=== PATIENT | female | born 1950 | race Caucasian/White ===

== ENCOUNTER → 2018-02-28 01:27 | Outpatient (CLI) | payer MEDICARE, SELFPAY ==
--- NOTE | 2018-02-28 09:15 | DI.REPORT_ITS ---
SYMPTOM/DIAGNOSIS: SCREENING Z12.31 MAMMOGRAM: 02/28 Mammograms were interpreted according to the usual protocol including computer analysis with CAD system, tomosynthesis and C view imaging. The breasts are of moderate density with fairly symmetrical distribution of fibroglandular tissue. No dominant mass or clumped microcalcification is identified in either breast. The current examination is compared with previous examinations including February 2017 and there has been no gross interval change in appearance in comparison with the previous studies. CONCLUSION: No specific evidence of malignancy at this time. Routine screening examinations are suggested at yearly intervals due to the family history of breast carcinoma. Category 1, breast density category B. MQSA ASSESSMENT OF FINDINGS: Negative. Category 1. Patient will receive a letter notifying them of these results. BI-RADS category B. There are scattered areas of fibroglandular density.
== END ==
PROVIDERS: PCP Nurse Practitioner; Visit Provider Nurse Practitioner
DX: Z12.31 Encounter for screening mammogram for malignant neoplasm of breast (principal); Z80.3 Family history of malignant neoplasm of breast
CPT/HCPCS: 77063; 77067

== ENCOUNTER 2018-08-25 15:27 | Outpatient (CLI) | payer MEDICARE, OTHER, SELFPAY ==
--- NOTE | 2018-08-25 15:55 | DI.RAD_ITS ---
SYMPTOM/DIAGNOSIS: SOB, WT GAIN, R06.02 PA AND LATERAL CHEST: Comparison is made with 12/19/16. Heart size is stable and within normal limits. There is tortuosity of the thoracic aorta. Pulmonary vasculature is otherwise unremarkable. There is unchanged elevation of the right hemidiaphragm. The lungs are free of infiltrates, effusions or pneumothoraces. There is again seen exaggeration of the kyphosis centered at T 12. This is unchanged. Degenerative changes are seen in the spine. IMPRESSION: No acute pulmonary process.
[2018-08-25 16:30] LABS: HCT 50.1 % (36.0-46.0); HGB 15.5 g/dL (12.0-15.5); Mean Corp. HGB Concentration 30.9 g/dL (32.0-36.0); Mean Corpuscular Hemoglobin 32.5 pg (27.0-33.0); Mean Platelet Volume 10.2 fL (8.0-11.0); Platelet Count 132 x1000/uL (130-400); RBC 4.77 m/cumm (4.00-5.20); RBC Distribution Width 13.8 % (11.7-14.6); White Blood Cell Count 5.52 k/cumm (4.4-10.8)
[2018-08-25 17:17] LABS: ALT 33 U/L (12-78); AST 22 U/L (15-37); Alkaline Phosphatase 62 U/L (46-116); Anion Gap 2.6 mmol/L (3-11); BUN 19 mg/dL (7-18); Bilirubin, Total 0.4 mg/dL (0.2-1.0); CO2 39.4 mmol/L (21.0-32.0); CREATININE 0.82 mg/dL (0.55-1.02); Calcium 8.3 mg/dL (8.5-10.1); Chloride 103 mmol/L (98-107); Glucose 76 mg/dL (70-100); Potassium 4.3 mmol/L (3.5-5.1); Sodium 145 mmol/L (136-145); TSH (W/Ref FT4) 2.07 uIU/mL (0.358-3.74); Total Protein 6.3 g/dL (6.4-8.2)
== END 2018-08-25 15:47 ==
PROVIDERS: PCP Nurse Practitioner; Visit Provider Nurse Practitioner
DX: R06.02 Shortness of breath (principal); R63.5 Abnormal weight gain; R60.0 Localized edema; I10 Essential (primary) hypertension; E03.9 Hypothyroidism, unspecified
CPT/HCPCS: 36415; 80053; 85027; 71046; 84443

== ENCOUNTER 2018-09-01 13:30 | Outpatient (CLI) | payer MEDICARE, OTHER, SELFPAY ==
--- NOTE | 2018-09-01 13:41 | DI.CT_ITS ---
SYMPTOM/DIAGNOSIS: SOB, DYSPNEA ON EXERTION, LOWER EXTREMITY EDEMA, LOW 02 SAT, R06.09,R06.00, R60.0, R79.[address]: CT angiography was performed with multi slice acquisition and multi planar and 3D reconstruction. Comparison is made chest xray dated 08/25/[address] dated 12/16/15. The pulmonary arteries and aorta are well opacified with IV contrast. No pulmonary artery filling defects or aortic dissection is seen. There are no pleural or pericardial effusions. The right diaphragm is again noted to be elevated and there is mild right basilar atelectasis. There are mild atherosclerotic changes of the thoracic aorta. There is a small hiatal hernia. The lungs are suboptimally evaluated due to respiratory motion. There is underlying emphysema. No infiltrates are seen. Again noted is a small, smoothly marginated area in the anterior mediastinum. Scoliosis and degenerative changes are again noted in the spine. IMPRESSION: No evidence of pulmonary emboli or other acute abnormality. There is mild underlying centrilobular emphysema.
--- NOTE | 2018-09-01 14:08 | DI.US_ITS ---
SYMPTOM/DIAGNOSIS: RT CALF PAIN, BILAT LOWER EXT EDEMA, R60.0, M79.661, LT CALF PAIN BILATERAL LOWER EXTREMITY ULTRASOUND: There is edema noted in the subcutaneous tissues of the calves bilaterally. No Celestin's cysts or localized fluid collection is seen. The deep venous system is freely compressible. No thrombus is visible. The doppler venous wave form augments normally. No superficial thrombophlebitis is seen. IMPRESSION: Calf edema. No evidence of deep or superficial venous thrombosis.
[2018-09-01 14:27] LABS: Anion Gap 4.7 mmol/L (3-11); BUN 20 mg/dL (7-18); CO2 39.3 mmol/L (21.0-32.0); CREATININE 0.93 mg/dL (0.55-1.02); Calcium 8.7 mg/dL (8.5-10.1); Chloride 100 mmol/L (98-107); Glucose 103 mg/dL (70-100); Potassium 3.7 mmol/L (3.5-5.1); Sodium 144 mmol/L (136-145)
[2018-09-01] MEDS: Omnipaque 350 MG/ML 100 ML BTL IJ (15:52)
== END 2018-09-01 13:50 ==
PROVIDERS: PCP Nurse Practitioner; Visit Provider Nurse Practitioner
DX: R06.09 Other forms of dyspnea (principal); R60.0 Localized edema; R79.81 Abnormal blood-gas level; R06.02 Shortness of breath; J43.9 Emphysema, unspecified; I49.3 Ventricular premature depolarization
CPT/HCPCS: 0296T; 36415; 71275; 80048; 93225; 93970; J3490

== ENCOUNTER 2018-09-22 16:03 | Outpatient (CLI) | payer MEDICARE, OTHER, SELFPAY | END 2018-09-22 16:23 | PROVIDERS: PCP Nurse Practitioner; Referring Provider Nurse Practitioner; Visit Provider Student in an Organized Health Care Education/Training Program | DX: R06.02 Shortness of breath (principal); I49.3 Ventricular premature depolarization | CPT/HCPCS: 0298T ==

== ENCOUNTER 2018-12-09 01:42 | Outpatient (CLI) | payer MEDICARE, OTHER, SELFPAY ==
--- NOTE | 2018-12-09 08:51 | DI.RAD_ITS ---
SYMPTOM/DIAGNOSIS: ELEVATED HEMIDIAPHRAGM, DISORDER OF DIAPHRAGM, J98.6 CHEST FLUOROSCOPY AND PA AND LATERAL CHEST:: Preliminary PA and lateral views of the chest show borderline cardiomegaly and elevation of the diaphragm on the right. Visualized lungs are clear and no pleural effusion is seen. Fluoroscopy Time: 44 seconds Fluoroscopy was utilized to evaluate elevated diaphragm on the right. Left hemidiaphragm moves normally with inspiration and expiration and on sniff test. Right hemidiaphragm shows minimal paradoxical movement on inspiration and expiration and sniff test. 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
== END 2018-12-09 02:02 ==
PROVIDERS: PCP Nurse Practitioner; Visit Provider Nurse Practitioner
DX: J98.6 Disorders of diaphragm (principal); I51.7 Cardiomegaly
CPT/HCPCS: 76000

== ENCOUNTER 2018-12-16 08:01 | Outpatient (RCR) | payer MEDICARE, OTHER, SELFPAY | END 2019-01-04 23:59 | disposition home or self-care (01) | LOC: PRC 08:01 | PROVIDERS: PCP Nurse Practitioner; Visit Provider Family Medicine | DX: Z51.89 Encounter for other specified aftercare (principal) ==

== ENCOUNTER 2019-02-05 08:52 | Outpatient (RCR) | payer MEDICARE, OTHER, SELFPAY | END 2019-03-07 23:59 | disposition home or self-care (01) | LOC: PRC 08:52 | PROVIDERS: PCP Nurse Practitioner; Visit Provider Family Medicine | DX: Z51.89 Encounter for other specified aftercare (principal); J44.9 Chronic obstructive pulmonary disease, unspecified | CPT/HCPCS: G0424 ==

== ENCOUNTER 2019-03-05 00:41 | Outpatient (CLI) | payer MEDICARE, OTHER, SELFPAY ==
--- NOTE | 2019-03-05 12:28 | DI.MAMMO_ITS ---
SYMPTOM/DIAGNOSIS: SCREENING, Z12.31 MAMMOGRAMS: Mammograms were interpreted according to the usual protocol including computer analysis with CAD system, tomosynthesis and C view imaging. Comparison is made with prior examinations. Breast density, Category B. Fibronodular densities are scattered throughout the breasts. No suspicious masses or microcalcifications are seen. There has been no significant change compared to the prior examinations. IMPRESSION: No evidence for malignancy. Yearly mammography is recommended. Category 2. MQSA ASSESSMENT OF FINDINGS: Negative with benign findings. Category 2. Patient will receive a letter notifying them of these results. BI-RADS category B. There are scattered areas of fibroglandular density.
== END 2019-03-05 01:01 ==
PROVIDERS: PCP Nurse Practitioner; Visit Provider Nurse Practitioner
DX: Z12.31 Encounter for screening mammogram for malignant neoplasm of breast (principal)
CPT/HCPCS: 77063; 77067

== ENCOUNTER 2019-04-03 14:00 | Outpatient (RCR) | payer MEDICARE, OTHER, SELFPAY | END 2019-04-06 23:59 | disposition home or self-care (01) | LOC: PRC 14:00 | PROVIDERS: PCP Nurse Practitioner; Visit Provider Family Medicine | DX: Z51.89 Encounter for other specified aftercare (principal); J44.9 Chronic obstructive pulmonary disease, unspecified | CPT/HCPCS: G0424 ==

== ENCOUNTER 2019-05-06 14:00 | Outpatient (RCR) | payer MEDICARE, OTHER, SELFPAY | END 2019-05-07 23:59 | disposition home or self-care (01) | LOC: PRC 14:00 | PROVIDERS: PCP Nurse Practitioner; Visit Provider Family Medicine | DX: J44.9 Chronic obstructive pulmonary disease, unspecified (principal); Z51.89 Encounter for other specified aftercare | CPT/HCPCS: G0424 ==

== ENCOUNTER 2019-05-25 14:00 | Outpatient (RCR) | payer MEDICARE, OTHER, SELFPAY | END 2019-06-06 23:59 | disposition home or self-care (01) | LOC: PRC 14:00 | PROVIDERS: PCP Nurse Practitioner; Visit Provider Family Medicine | DX: J44.9 Chronic obstructive pulmonary disease, unspecified (principal); Z51.89 Encounter for other specified aftercare | CPT/HCPCS: G0424 ==

== ENCOUNTER 2019-07-18 16:42 | Emergency (ER) | payer MEDICARE, OTHER, SELFPAY ==
[2019-07-18] VITALS (24 sets, daily range): BP systolic 112–162; BP diastolic 48–85; PULSE 69–84; RESP 13–27; TEMP 36.9–37.1; O2SAT 86–94
--- NOTE | 2019-07-18 17:05 | W.ED.GENAD ---
Discharge Plan Disposition Patient Disposition: HOME Condition: Stable Discharge Details Chief Complaint: Chest Pain Clinical Impression: Arm pain, Atypical chest pain Primary Care Provider: Barbi Hinton ED Provider: Eliel Han Home Meds and New Rx's Prescriptions: Continued ibuprofen 200 mg capsule 200 mg PO TID-QID PRNRF: 0 furosemide 40 mg tablet 40 mg PO DAILY RF: 0 levothyroxine 125 mcg tablet 125 mcg PO DAILY Qty: 90 RF: 3 Combivent Respimat 20-100 mcg/actuation mist 1 puff IH Q6H RF: 0 (DME) Oxygen Tank See Dose Instructions .ROUTE .MEDSUPPLY Qty: 1 RF: 0 potassium chloride 10 mEq capsule, extended release 10 meq PO DAILY Qty: 90 RF: 3 Anoro Ellipta 62.5-25 mcg/actuation blister with device 1 inh IH DAILY RF: 0 omeprazole 20 mg capsule,delayed release(DR/EC) 20 mg PO DAILY RF: 0 fluticasone propionate 50 mcg/actuation spray,suspension 1 spray PERLA DAILY RF: 0 tiotropium-olodaterol 2.5-2.5 mcg/actuation mist 2 puff IH DAILY RF: 0 ergocalciferol (vitamin D2) 400 unit tablet 400 unit PO DAILY RF: 0 bupropion HCl [Wellbutrin SR] 150 mg tablet sustained-release 12 hr 150 mg PO DAILY RF: 0 Discharge Instructions Instructions: Chest Pain (ED), Arm Pain (ED) Additional Instructions: Alternate tylenol and motrin as needed and directed for pain. Follow-up with your primary care doctor in 1 week. Return to the emergency department with any worsening or new concerning symptoms. Discharge Data Discharge Date/Time-TO BE ENTERED AT DEPARTURE: 07/18/19 20:50 Discharge Physician: Rima Carvalho Medical Decision Making <Rima Carvalho DO - Last Filed: 07/19/19 08:18> 1700 -- 68-year-old female with history of COPD, sleep apnea, former smoker presents with bilateral arm pain, worse on right side and with movement x3 hours and also burning substernal chest pain x1 hour. States the pain is improved now, but still present with 8/10 in the right arm, and 5/10 in the chest. Denies any numbness or weakness in extremities. She admits to shortness of breath earlier but states this is now resolved. She states she was mopping around the house yesterday and carrying heavy box at home but was unsure of there was any injury. EKG on arrival notes a rate of 80, sinus with no acute ST ischemic changes. Patient has pain in arms with range of motion, worse on right side along with tenderness to palpation. She has minimal tenderness to substernal chest. Lungs clear. She states her O2 sat is 88% at baseline due to her COPD. She has oxygen at home as needed. Differential diagnosis includes musculoskeletal chest and arm pain, COPD, ACS, PE. Suspect most likely musculoskeletal. Will check screening labs, chest x-ray and give Toradol and Lidoderm patch. 1914 -- Labs and imaging reviewed. Normal white blood cell count. Normal electrolytes. Troponin negative. Chest x-ray noted a chronically elevated right hemidiaphragm, but an atypical appearance on lateral view compared to previous. Recommended CT chest for further evaluation. Patient had complete relief of symptoms with Lidoderm and Toradol. She is agreeable to stay for repeat troponin and EKG. 1999 --Case endorsed to Dr. Han to follow-up on repeat troponin and EKG and CT results. If follow-up labs and imaging negative, and patient still asymptomatic, okay w/ plan to discharge home with follow-up with PCP. Medical Records Medical records reviewed: Yes I reviewed the patient's medical records. Imaging Data Radiologic Study: Radiologist's impression: XR Chest, 2 Views Exam date and time: 07/18/2019 6:14 PM Age: 68 years old Clinical indication: Other: Chest pain, R/O acute disease TECHNIQUE: Imaging protocol: XR of the chest Views: 2 views. COMPARISON: CR RF chest fluoroscopy cxr 2v 12/09/2018 8:51 AM FINDINGS: Lungs: No focal consolidation. Pleural space: Unremarkable. No pleural effusion. No pneumothorax. Heart/Mediastinum: Unremarkable. No cardiomegaly. Diaphragm: Unchanged elevation of the right hemidiaphragm though the appearance somewhat atypical on lateral view. Bones/joints: Unremarkable. IMPRESSION: Similar appearing asymmetric elevation of the right hemidiaphragm. The appearance is somewhat atypical on lateral view which suggests possible superimposed loculated effusion or right middle lobe consolidation. Consider further evaluation with CT. Lab Data Lab results reviewed: Yes I reviewed the patient's lab results. ECG Data Attestation: I personally reviewed and interpreted this ECG (s) as follows: Interpretation: Rate of 80, sinus, no acute ST elevation or depression. T wave inversion in V2 and lead III which is unchanged from previous. PA 142. QTc 457. QRS 102. <Eliel Han MD - Last Filed: 07/18/19 20:43> pt's ct and troponin/ecg negative. remains pain free and comfortable with d/c. Will d/c home and advdised f/u with pcp, return precautions given ECG Data Attestation: I personally reviewed and interpreted this ECG (s) as follows: Prior ECG tracings: available for review Interpretation: sinus rhythm, rate of 69, pr 186, no acute st t wave ischemic findings HPI <Rima Carvalho DO - Last Filed: 07/19/19 08:18> General Date/Time Provider Initiated Documentation: 07/18/19 16:56. Limitations to Documentation: no limitations. Information obtained by: patient. History of Present Illness 68 year old F presents to the emergency department with the chief complaint of Chest and arm pain, Quality is described as burning (in chest) and aching (in arms), Patient reports no radiation. Patient started experiencing this hour(s) (6) and it has been constant. No relieving factors improve symptom(s), Movement worsens symptoms . Patient notes chest pain and shortness of breath; denies confusion, cough, diaphoresis, fever/chills, headaches, loss of appetite, malaise, nausea/vomiting, rash, seizure, syncope and weakness. Patient did receive the following treatments prior to arrival, none Related Data Home Medications Medication Instructions Recorded Confirmed ibuprofen 200 mg capsule 200 mg PO TID-QID PRN 08/25/18 07/18/19 furosemide 40 mg tablet 40 mg PO DAILY 09/19/18 07/18/19 levothyroxine 125 mcg tablet 125 mcg PO DAILY #90 tab-cap 09/29/18 07/18/19 Oxygen #1 each 11/05/18 12/04/18 ipratropium 20 mcg-albuterol 100 1 puff IH Q6H 11/05/18 07/18/19 mcg/actuation mist for inhalation potassium chloride 10 mEq 10 meq PO DAILY #90 cap 12/18/18 07/18/19 capsule,extended release fluticasone propionate 50 1 spray PERLA DAILY 03/05/19 07/18/19 mcg/actuation nasal spray,suspension omeprazole 20 mg capsule,delayed 20 mg PO DAILY 03/05/19 07/18/19 release umeclidinium 62.5 mcg-vilanterol 1 inh IH DAILY 03/05/19 07/18/19 25 mcg/actuation powdr for inhalation tiotropium 2.5 mcg-olodaterol 2.5 2 puff IH DAILY 04/06/19 07/18/19 mcg/actuation mist for inhalation ergocalciferol (vitamin D2) 400 400 unit PO DAILY 06/15/19 07/18/19 unit tablet bupropion HCl [Wellbutrin SR] 150 mg PO DAILY 07/18/19 07/18/19 Previous Rx's Medication Instructions Recorded levothyroxine 125 mcg tablet 125 mcg PO DAILY #90 tab-cap 09/29/18 potassium chloride 10 mEq 10 meq PO DAILY #90 cap 12/18/18 capsule,extended release Allergies Allergy/AdvReac Type Severity Reaction Status Date / Time No Known Drug Allergies Allergy Verified 07/18/19 16:52 General Stated Complaint: Chest Pain LAINE: 2 Review of Systems <Rima Carvalho DO - Last Filed: 07/19/19 08:18> All systems reviewed & are unremarkable except as noted in HPI and below Constitutional Constitutional: Reports as per HPI, Denies chills and Denies fever(s) Eyes Eyes: Denies blurry vision ENT Ears, Nose, Mouth, and Throat: Denies dizziness, Denies sore throat and Denies throat swelling Cardiovascular Cardiovascular: Reports chest pain and Denies dyspnea Respiratory Respiratory: Denies cough and Denies dyspnea Gastrointestinal Gastrointestinal: Denies abdominal pain, Denies diarrhea and Denies vomiting Genitourinary Genitourinary: Denies hematuria and Denies dysuria Musculoskeletal Musculoskeletal: Denies back pain, Denies numbness and Reports other (Bilateral arm pain) Integumentary/Breasts Skin/Breast: Denies lesions and Denies rash Neurologic Neurologic: Denies dizziness, Denies focal weakness and Denies numbness Allergic/Immunologic Allergic/Immunologic: Denies throat swelling PFSH <DO Francoise Ly Last Filed: 07/19/19 08:18> Medical History COPD, severe (Inactive) [facility] [place] pulmonology progress note 11/04/18. Leticia Silvestre MD Obstructive sleep apnea syndrome (Inactive) very severe [facility] pulmonary 01/09/19.cpap with supplimental O2 Pulmonary hypertension (Inactive) Right Heart Catheterization performed 10/03/18 @ [facility] consistent with moderate pulmonary HTN, Likely precapillary from COPD. 03/31/19 [facility] Cardiology Surgical History Mediastinal nodule biopsy (12/29/15) 2.2 cm nodule anterior mediastinum bx Interventional Radiology [facility] Family History Mother Neoplasm breast CA Father No problems noted. Sister Neoplasm breast CA early 50's, currently doing well 12/12/16 RH Brother No problems noted. Brother No problems noted. Son No problems noted. Social History Smoking/Tobacco Use Status: Former Tobacco Use Alcohol Intake: current Alcohol Intake frequency: 0-2 drinks per day Alcohol type: wine Drug use: Never Substance use type: does not use Exam <Rima Carvalho DO - Last Filed: 07/19/19 08:18> Const General: cooperative, healthy appearing and no acute distress HENMT Head: normal to inspection Face and sinus: normal facial exam Eyes General: appearance normal, both eyes and all related structures EOM: EOM intact bilaterally Neck Neck: normal visual inspection and No submandibular swelling Lymphatic: no lymphadenopathy noted Chest Chest: normal inspection of the chest and tenderness (substernal, minimal ) Resp Effort & Inspection: normal respiratory effort and able to speak in complete sentences Auscultation: clear to auscultation bilaterally Cardio Rate: regular rate Rhythm: regular rhythm GI Inspection: normal to inspection Palpation: soft, not firm, not rigid and nontender Auscultation: normal bowel sounds Back/Spine/Pelvis Thoracic/Lumbar Spine: thoracic and lumbar spine normal to inspection Pelvis: no pain with anterior-posterior compression Skin General skin exam: no rashes or lesions noted Neuro General: alert, awake and oriented x3 Cognition: normal cognition Speech: speech normal Motor: muscle tone normal throughout Sensory Exam: no sensory deficits noted Extrem General: normal to inspection, full ROM and normal capillary refill Other: pain in both arms with range of motrin, worse on R side. Tenderness to palpation of right upper extremity. No edema, ecchymosis, erythema, rash or lesions. Bilateral radial pulses intact. Psych Appearance: grossly normal Mental Status: mental status grossly normal Speech and Movement: speech and movement normal Affect: normal affect Course <Rima Carvalho DO - Last Filed: 07/19/19 08:18> Vital Signs Vital signs: Vital Signs Temperature 98.8 F 07/18/19 16:47 Pulse 83 07/18/19 16:47 Respiratory Rate 18 07/18/19 16:47 Blood Pressure 162/73 H 07/18/19 16:47 Pulse Oximetry 94 L 07/18/19 16:47 Temperature 98.8 F 07/18/19 16:47 Temperature Source Skin 07/18/19 16:47 Pulse 83 07/18/19 16:47 Respiratory Rate 18 07/18/19 16:47 Respiratory Effort 07/18/19 16:56 Blood Pressure 162/73 H 07/18/19 16:47 Blood Pressure Position Sitting 07/18/19 16:47 Pulse Oximetry 94 L 07/18/19 16:47 Oxygen Delivery Method Room Air 07/18/19 16:47 Oxygen Flow Rate 0 07/18/19 16:47 Pain Level 6 07/18/19 16:47 Sign Out <Rima Carvalho DO - Last Filed: 07/19/19 08:18> Sign Out Data: Sign Out Comment: Follow-up on repeat troponin and EKG, and CT chest results. Last updated by Rima Carvalho DO at 07/18/19 20:00
[2019-07-18 17:20] LABS: Abs Immature Grans 0.02 k/cumm (0.0-0.09); Absolute Basophil Count 0.01 k/cumm (0.0-0.2); Absolute Eosinophil Count 0.17 k/cumm (0.0-0.7); Absolute Lymphocyte Count 1.67 k/cumm (1.2-3.4); Absolute Monocyte Count 1.06 k/cumm (0.11-0.7); Absolute Neutrophil Count 6.46 k/cumm (1.2-6.7); Basophils % 0.1; Eosinophils % 1.8; HCT 40.3 % (36.0-46.0); HGB 13.5 g/dL (12.0-15.5); Immature Grans % 0.2 %; Lymphocytes % 17.8; Mean Corp. HGB Concentration 33.5 g/dL (32.0-36.0); Mean Corpuscular Hemoglobin 33.2 pg (27.0-33.0); Mean Platelet Volume 10.4 fL (8.0-11.0); Monocytes % 11.3; Neutrophils % 68.8; Platelet Count 221 x1000/uL (130-400); RBC 4.07 m/cumm (4.00-5.20); RBC Distribution Width 12.3 % (11.7-14.6); White Blood Cell Count 9.39 k/cumm (4.4-10.8)
[2019-07-18 17:35] LABS: ALT 38 U/L (14-59); AST 24 U/L (15-37); Albumin 3.7 g/dL (3.4-5.0); Alkaline Phosphatase 75 U/L (46-116); Anion Gap 8.4 mmol/L (3-11); BUN 22 mg/dL (7-18); Bilirubin, Total 0.3 mg/dL (0.2-1.0); CO2 30.6 mmol/L (21.0-32.0); Chloride 102 mmol/L (98-107); Glucose 95 mg/dL (74-106); Magnesium 2.2 mg/dL (1.8-2.4); Potassium 3.9 mmol/L (3.5-5.1); Sodium 141 mmol/L (136-145); Total Protein 7.3 g/dL (6.4-8.2)
[2019-07-18 17:36] LABS: Troponin I < 0.05 ng/Ml (<0.06)
[2019-07-18] MEDS: Lidocaine 5% Patch 1 PATCH TP (17:46)
[2019-07-18] MEDS: Ketorolac 30 MG/ML VIAL IVP (17:47)
--- NOTE | 2019-07-18 18:11 | DI.RAD_ITS ---
EXAM: XR CHEST 2V PA LATERAL INDICATION: chest pain, r/o acute disease. COMPARISON: XR CHEST 2V PA LATERAL from 08/25/2018 RF chest fluoroscopy cxr 2v from 12/09/2018 TECHNIQUE: 2D digital imaging was performed. FINDINGS: The heart size appears stable. There is tortuosity of the thoracic aorta. Lungs are clear. No effu sions or pneumothoraces are present. There is unchanged marked elevation of the right hemidiaphragm. Bones are intact. There is again seen marked kyphosis in the lower thoracic spine. Degenerative c hanges are seen in the spine. IMPRESSION: No acute pulmonary process.
--- NOTE | 2019-07-18 18:29 | DI.VRAD_ITS ---
PROCEDURE INFORMATION: Exam: XR Chest, 2 Views Exam date and time: 07/18/2019 6:14 PM Age: 68 years old Clinical indication: Other: Chest pain, R/O acute disease TECHNIQUE: Imaging protocol: XR of the chest Views: 2 views. COMPARISON: CR RF chest fluoroscopy cxr 2v 12/09/2018 8:51 AM FINDINGS: Lungs: No focal consolidation. Pleural space: Unremarkable. No pleural effusion. No pneumothorax. Heart/Mediastinum: Unremarkable. No cardiomegaly. Diaphragm: Unchanged elevation of the right hemidiaphragm though the appearance somewhat atypical on lateral view. Bones/joints: Unremarkable. IMPRESSION: Similar appearing asymmetric elevation of the right hemidiaphragm. The appearance is somewhat atypical on lateral view which suggests possible superimposed loculated effusion or right middle lobe consolidation. Consider further evaluation with CT. Dictated and Authenticated by: Dio Luna MD. Ordering:LEIGHA Abarca MD
--- NOTE | 2019-07-18 19:37 | DI.CT_ITS ---
EXAM: CT CHEST PE CTA CLINICAL HISTORY: r/o RML effusion or consolidation OR PE OR DISSECTION TECHNIQUE: Imaging Protocol: Axial CT angiography was performed with multi-slice acquisition and mu lti-planar and/or 3D reconstructions. CONTRAST MATERIAL: Intravenous: Omnipaque 350 Contrast volume:100 mL COMPARISON: CT chest PE CTA from 09/01/2018 FINDINGS: Pulmonary Arteries: No evidence of filling defect to suggest pulmonary emboli. Tracheobronchial tree: Patent where visualized. Mediastinum and Lillian: No dominant adenopathy or fluid collection. There has been no change in a well marginated, 2.5 centimeter hypodense lesion in the anterior mediastinum. Pulmonary parenchyma: Bilateral basilar atelectasis. Emphysematous changes in the lungs. Pleura: No effusion or pneumothorax. Heart: The heart is not dilated. No significant pericardial effusion or evidence of right heart strai n. Aorta: No evidence of thoracic aortic dissection or aneurysm. Upper abdomen: Stable marked elevation of the right hemidiaphragm. Bones: Degenerative changes in the spine with focal kyphosis at T11 which is unchanged. IMPRESSION: No evidence of pulmonary embolus, thoracic aortic dissection or aneurysm. DATA REPOSITORY: All CT scans at this facility are submitted to the National Radiology Data Registry (NRDR) Dose Index Registry (DIR) with the [employer] (ACR). RADIATION OPTIMIZATION: All CT scans at this facility use at least one of these dose optimization te chniques: automated exposure control; mA and/or kV adjustment per patient size (includes targeted exa ms where dose is matched to clinical indication); or iterative reconstruction.
[2019-07-18] MEDS: Omnipaque 350 MG/ML 100 ML BTL IJ (19:44)
--- NOTE | 2019-07-18 20:09 | DI.VRAD_ITS ---
PROCEDURE INFORMATION: Exam: CT Angiography Chest With Contrast Exam date and time: 07/18/2019 7:37 PM Age: 68 years old Clinical indication: Chest pain; Additional info: R/O pe/dissection TECHNIQUE: Imaging protocol: Computed tomographic angiography of the chest with intravenous contrast. 3D rendering: MIP and/or 3D reconstructed images were created by the technologist. COMPARISON: CT chest PE CTA 09/01/2018 3:39 PM FINDINGS: Pulmonary arteries: No pulmonary embolism. Aorta: No evidence of acute aortic injury. Lungs: Centrilobular emphysema. Bibasilar atelectasis/scar. No consolidation. Pleural space: Unremarkable. No pneumothorax. No pleural effusion. Heart: Unremarkable. No cardiomegaly. No pericardial effusion. Mediastinum: Unchanged 2.5 cm lesion in the anterior mediastinum. Diaphragm: Similar appearing markedly elevated right hemidiaphragm containing a significant portion of the liver. Lymph nodes: Unremarkable. No enlarged lymph nodes. Bones/joints: The thoracic spine demonstrates mild degenerative changes at multiple levels. Severe degenerative changes and degenerative disc disease in the lower thoracic/upper lumbar spine with focal kyphosis at T11, unchanged from prior. Soft tissues: Unremarkable. IMPRESSION: 1. No acute aortic injury. 2. No pulmonary embolism. 3. Chronic incidental findings are unchanged from prior 09/01/2018 CT. Dictated and Authenticated by: Dio Luna MD. Ordering:LEIGHA Abarca MD
[2019-07-18 20:32] LABS: Troponin I < 0.05 ng/Ml (<0.06)
== END 2019-07-18 20:50 | disposition home or self-care (01) ==
PROVIDERS: Physician Assistant; Emergency Provider Emergency Medicine; PCP Nurse Practitioner
DX: R07.89 Other chest pain (principal); M79.601 Pain in right arm; J44.9 Chronic obstructive pulmonary disease, unspecified; Z87.891 Personal history of nicotine dependence
CPT/HCPCS: 36415; 71275; 80053; 93005; 96374; 99285; 71046; 83735; 84484; 85025; 93010; J1885; J3490

== ENCOUNTER 2019-07-30 13:52 | Outpatient (CLI) | payer MEDICARE, OTHER, SELFPAY ==
[2019-07-30 15:15] LABS: TSH (W/Ref FT4) 1.03 uIU/mL (0.36-3.74)
== END 2019-07-30 14:12 ==
PROVIDERS: PCP Nurse Practitioner; Visit Provider Nurse Practitioner
DX: E03.9 Hypothyroidism, unspecified (principal)
CPT/HCPCS: 36415; 84443

== ENCOUNTER 2020-03-07 02:12 | Outpatient (CLI) | payer MEDICARE, OTHER, SELFPAY ==
--- NOTE | 2020-03-07 08:15 | DI.MAMMO_ITS ---
EXAM: MG MAMMO SCREENING CLINICAL HISTORY: screening, Z12.39 TECHNIQUE: Bilateral full field digital CC and MLO mammographic images were obtained with 3D tomosyn thesis and utilizing computer aided detection (CAD). COMPARISON: Available for comparison. FINDINGS: Masses/Architectural Distortion: Scattered nodules are seen in both breasts. No suspicious masses ar e seen. Microcalcifications: No suspicious pleomorphic-type are seen. Skin Thickening/Nipple Retraction: None. IMPRESSION: 1. No significant interval change with no specific features of malignancy noted. 2. Unless there is more urgent need, screening mammography is recommended, as per [employer] guidelines. BI-RADS Category 2 - Benign Findings Breast Density - Category B - Scattered areas of fibroglandular density A negative radiographic report should not delay biopsy if a dominant or clinically suspicious mass is present. Up to ten percent of cancers are not identified on mammography. A negative report may reinforce clinical impression. Adenosis and dense breasts may obscure an underlying neoplasm. False positive reports average 6 to 10%. Patient will receive a letter notifying them of these results.
== END 2020-03-07 02:32 ==
PROVIDERS: PCP Nurse Practitioner; Visit Provider Nurse Practitioner
DX: Z12.31 Encounter for screening mammogram for malignant neoplasm of breast (principal); N63.20 Unspecified lump in the left breast, unspecified quadrant; N63.10 Unspecified lump in the right breast, unspecified quadrant
CPT/HCPCS: 77063; 77067

== ENCOUNTER 2020-08-22 00:05 | Outpatient (CLI) | payer MEDICARE, OTHER, SELFPAY ==
--- NOTE | 2020-08-22 | DI.CTLCSR_ITS ---
EXAM: CT CHEST LUNG CANCER SCREEN CLINICAL HISTORY: SCREENING FOR LUNG CA, FORMER SMOKER, Z87.891. TECHNIQUE: Imaging Protocol: Low Dose Technique CONTRAST MATERIAL: None COMPARISON: CT CHEST WITH CONTRAST from 12/16/2015 FINDINGS: CHEST: There is chronic elevation of the right hemidiaphragm which is unchanged from 2016 LUNGS: There are no ominous pulmonary nodules. No pleural effusions. MEDIASTINUM: Again noted is a previously described well-defined noncalcified mass in the anterior med iastinal fat just below the innominate vein and anterior to the ascending thoracic aorta, presently m easuring 2.5 cm AP by 1.8 cm wide by 2.7 cm cephalocaudal. This has not increased in size from December 2015 and this therefore most probably benign. There are no other mediastinal masses evident. No obv ious new adenopathy in the hilar regions and subcarinal regions.. No new axillary adenopathy. Thyro id gland is minimal. CARDIAC: Heart size is normal. There is no pericardial effusion.Caliber of the thoracic aorta is wit hin normal limits. OTHER: OSSEOUS: No significant osseous lesions.. IMPRESSION: 1. Chronically elevated right hemidiaphragm which is unchanged from December 2015 CT scan. 2. No new pulmonary nodules nor pleural effusions. 3. 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 No other mediastinal findings. Lung RADS Cat 2S - Benign Appearance / Behavior: Nodules with a very low likelihood of becoming a cli nically active cancer due to size or lack of growth Stable mediastinal mass as described above which appears unchanged from CT scan of December 2015 RADIATION DOSE DELIVERED: 73.62mGy.cm Total DLP DATA REPOSITORY: All CT scans at this facility are submitted to the National Radiology Data Registry (NRDR) Dose Index Registry (DIR) with the [employer] (ACR). RADIATION OPTIMIZATION: All CT scans at this facility use at least one of these dose optimization te chniques: automated exposure control; mA and/or kV adjustment per patient size (includes targeted exa ms where dose is matched to clinical indication); or iterative reconstruction.
== END 2020-08-22 00:06 ==
LOC: DI 00:05
PROVIDERS: PCP Nurse Practitioner; Visit Provider Internal Medicine
DX: Z87.891 Personal history of nicotine dependence (principal); J98.59 Other diseases of mediastinum, not elsewhere classified; J98.6 Disorders of diaphragm
CPT/HCPCS: 71271

== ENCOUNTER 2020-08-22 02:02 | Outpatient (CLI) | payer MEDICARE, OTHER, SELFPAY ==
[2020-08-22 13:09] LABS: HCT 43.7 % (36.0-46.0); HGB 14.4 g/dL (11.2-15.7); MCH 32.5 pg (27.0-33.0); MCV 98.6 fL (80-95); MPV 10.6 fL (8.0-11.0); Platelet Count 205 10^3/uL (130-400); RBC 4.43 10^6/uL (3.93-5.22); RDW 11.9 % (11.7-14.6); RDW-SD 43.4 fL; WBC 6.55 10^3/uL (4.4-10.8)
[2020-08-22 13:51] LABS: ALT 45 U/L (14-59); AST 26 U/L (15-37); Albumin 3.8 g/dL (3.4-5.0); Alkaline Phosphatase 77 U/L (46-116); Anion Gap 5.9 mmol/L (3-11); BUN 16 mg/dL (7-18); Bilirubin, Total 0.6 mg/dL (0.2-1.0); CO2 34.1 mmol/L (21.0-32.0); CREATININE 0.7 mg/dL (0.55-1.02); Calcium 9.2 mg/dL (8.5-10.1); Calculated LDL 117 mg/dL (<100); Chloride 102 mmol/L (98-107); Cholesterol 219 mg/dL (<200); Glucose 96 mg/dL (74-106); HDL Cholesterol 81 mg/dL (40-60); Potassium 3.7 mmol/L (3.5-5.1); Sodium 142 mmol/L (136-145); TSH (W/Ref FT4) 0.22 uIU/mL (0.36-3.74); Total Protein 7.3 g/dL (6.4-8.2); Triglyceride 108 mg/dL (<150)
[2020-08-22 14:12] LABS: FREE T4 1.46 ng/dL (0.76-1.46)
== END 2020-08-22 02:03 | disposition home or self-care (01) ==
LOC: LBO 02:02
PROVIDERS: PCP Nurse Practitioner; Visit Provider Nurse Practitioner
DX: I10 Essential (primary) hypertension (principal); E03.9 Hypothyroidism, unspecified; I50.32 Chronic diastolic (congestive) heart failure; J98.6 Disorders of diaphragm; Z87.891 Personal history of nicotine dependence; J98.59 Other diseases of mediastinum, not elsewhere classified
CPT/HCPCS: 36415; 71271; 80053; 80061; 85027; 84439; 84443

== ENCOUNTER 2021-01-30 02:14 | Outpatient (CLI) | payer MEDICARE, OTHER, SELFPAY ==
[2021-01-30 13:18] LABS: TSH (W/Ref FT4) 0.61 uIU/mL (0.36-3.74)
== END 2021-01-30 02:15 | disposition home or self-care (01) ==
PROVIDERS: PCP Nurse Practitioner; Visit Provider Nurse Practitioner
DX: E03.9 Hypothyroidism, unspecified (principal)
CPT/HCPCS: 36415; 84443

== ENCOUNTER 2021-05-30 00:48 | Outpatient (CLI) | payer MEDICARE, OTHER, SELFPAY ==
--- NOTE | 2021-05-30 15:18 | DI.MAMMO_ITS ---
Exam(s) MAMMO SCREENING EXAM: MAMMO SCREENING CLINICAL HISTORY: screening TECHNIQUE: Mammograms were interpreted according to the usual protocol including computer analysis w IP [employer] CAD system, tomosynthesis and C-view imaging. COMPARISON: FINDINGS: The breasts are of moderate density with fairly symmetrical distribution of fibroglandular tissue. N o dominant mass or clumped microcalcification is identified in either breast. Comparison with previo us examinations including February 2020 shows apparent interval increase in size of 2 nodules of the ri ght breast, 1 located in the inferior portion of the breast and the other projected in the superior c entral portion of the breast on the MLO view, probably lying in the upper outer quadrant of breast. These measure about 5 millimeters in diameter and about 8 millimeters in diameter respectively. Spot compression views and breast ultrasound recommended for further evaluation. No other significant change seen. IMPRESSION: Additional mammographic views of the right breast and right breast ultrasound requested as described above. BI-RADS Category 0 - Assessment Incomplete: Need additional imaging evaluation Breast Density - Category B - Scattered areas of fibroglandular density
== END 2021-05-30 01:08 ==
PROVIDERS: PCP Nurse Practitioner; Visit Provider Nurse Practitioner
DX: Z12.31 Encounter for screening mammogram for malignant neoplasm of breast (principal); R92.8 Other abnormal and inconclusive findings on diagnostic imaging of breast
CPT/HCPCS: 77063; 77067

== ENCOUNTER 2021-06-16 00:32 | Outpatient (CLI) | payer MEDICARE, OTHER, SELFPAY ==
--- NOTE | 2021-06-16 14:00 | DI.US_ITS ---
Exam(s) MG MAMMO SCREEN CALL BACK UNI US BREAST RT COMPLETE EXAM: MG MAMMO SCREEN CALL BACK UNI and U/S breast RT complete CLINICAL HISTORY: 2 NODULES RT BREAST. TECHNIQUE: Craniocaudal and mediolateral oblique Full Field Digital Mammography views of the right b reast with Computer Aided Diagnosis followed by Tomosynthesis and right breast ultrasound. COMPARISON: Priors available for comparison. FINDINGS: Mammography/Tomosynthesis: Masses/Architectural Distortion: The well-circumscribed nodules are again seen in the medial right br east on the CC view and on the MLO view. Microcalcifictions: No suspicious pleomorphic-type are seen. Skin Thickening/Nipple Retraction: None. Right breast US: The entire right breast was evaluated sonographically including the retroareolar reg ion and axilla. Echotexture: Normal appearance of the glandular tissue. Shadowing: No suspicious foci. Cyst: A 5 mm complex cyst is seen at the 9 o'clock position 5 cm from the nipple. There is a complex 6 mm cyst at the 4 o'clock position 2 cm from the nipple. There is a 4 mm complex cyst at the 4 o'c lock position 2 cm from the nipple. Solid lesions: None seen. Ductal dilation: None. IMPRESSION: 1. No evidence of malignancy is noted. 2. Unless there is more urgent need, follow-up screening mammography is recommended, as per [employer] guidelines. 3. The findings were discussed with the patient on the date of the examination. BI-RADS Category 2 - Benign Findings Breast Density - Category B - Scattered areas of fibroglandular density Breast density Category C or D implies that the patient has dense breast tissue. Dense breast tissue can make it harder to find cancer on a mammogram. Dense breast tissue is also associated with an incr eased risk of breast cancer. This information about the result of the mammogram report was provided to the patient to raise their awareness. Use this report when you speak with the patient about their risks for breast cancer, which includes their family history. At that time, you may recommend additional screening tests (Ultrasoun d or MRI) as these tests may add significant information. A negative radiographic report should not delay biopsy if a dominant or clinically suspicious mass is present. Up to ten percent of cancers are not identified on mammography. A negative report may reinforce clinical impression. Adenosis and dense breasts may obscure an underlying neoplasm. False positive reports average 6 to 10%. Patient will receive a letter notifying them of these results.
== END 2021-06-16 00:52 ==
PROVIDERS: PCP Nurse Practitioner; Visit Provider Nurse Practitioner
DX: Z12.31 Encounter for screening mammogram for malignant neoplasm of breast (principal); R92.8 Other abnormal and inconclusive findings on diagnostic imaging of breast; N60.11 Diffuse cystic mastopathy of right breast
CPT/HCPCS: 76642; 77063; 77067

== ENCOUNTER → 2022-01-04 13:50 | Outpatient (BNVA) | payer MEDICARE, OTHER, SELFPAY | PROVIDERS: PCP Nurse Practitioner; Referring Provider Nurse Practitioner; Visit Provider Physical Therapy Assistant | DX: Z12.11 Encounter for screening for malignant neoplasm of colon (principal) ==

== ENCOUNTER 2022-01-12 02:23 | Outpatient (CLI) | payer MEDICARE, OTHER, SELFPAY | END 2022-01-12 02:24 | disposition home or self-care (01) | LOC: LBO 02:23 | PROVIDERS: PCP Nurse Practitioner; Visit Provider Nurse Practitioner ==

== ENCOUNTER 2022-01-18 02:20 | Outpatient (CLI) | payer MEDICARE, OTHER, SELFPAY ==
[2022-01-18 09:54] LABS: Abs Immature Grans 0.01 10^3/uL (0.0-0.06); Absolute Basophil Count 0.02 10^3/uL (0.0-0.2); Absolute Eosinophil Count 0.18 10^3/uL (0.0-0.7); Absolute Lymphocyte Count 1.08 10^3/uL (1.2-3.4); Absolute Monocyte Count 0.55 10^3/uL (0.1-0.8); Absolute Neutrophil Count 4.18 10^3/uL (1.2-6.7); Basophils % 0.3; HCT 41.8 % (36.0-46.0); HGB 14.1 g/dL (11.2-15.7); Immature Grans % 0.2; Lymphocytes % 17.9; MCH 33.7 pg (27.0-33.0); MCHC 33.7 % (32.0-36.0); MCV 100 fL (80-95); MPV 10.5 fL (8.0-11.0); Monocytes % 9.1; Neutrophils % 69.5; Platelet Count 185 10^3/uL (130-400); RBC 4.19 10^6/uL (3.93-5.22); RDW-SD 43.9 fL; WBC 6.02 10^3/uL (4.4-10.8)
[2022-01-18 10:44] LABS: ALT 43 U/L (14-59); AST 26 U/L (15-37); Albumin 3.5 g/dL (3.4-5.0); Alkaline Phosphatase 62 U/L (46-116); Anion Gap 5.1 mmol/L (3-11); BUN 17 mg/dL (7-18); Bilirubin, Total 0.5 mg/dL (0.2-1.0); CO2 34.9 mmol/L (21.0-32.0); CREATININE 0.7 mg/dL (0.55-1.02); Calculated LDL 113 mg/dL (<100); Chloride 103 mmol/L (98-107); Cholesterol 198 mg/dL (<200); Glucose 105 mg/dL (74-106); HDL Cholesterol 72 mg/dL (40-60); Potassium 4.2 mmol/L (3.5-5.1); Sodium 143 mmol/L (136-145); TSH (W/Ref FT4) 0.53 uIU/mL (0.36-3.74); Total Protein 7.3 g/dL (6.4-8.2); Triglyceride 69 mg/dL (<150)
== END 2022-01-18 02:21 | disposition home or self-care (01) ==
LOC: LBO 02:20
PROVIDERS: PCP Nurse Practitioner; Visit Provider Nurse Practitioner
DX: I50.32 Chronic diastolic (congestive) heart failure (principal); J44.9 Chronic obstructive pulmonary disease, unspecified; J45.909 Unspecified asthma, uncomplicated; I10 Essential (primary) hypertension; E03.9 Hypothyroidism, unspecified
CPT/HCPCS: 36415; 80053; 80061; 84443; 85025

== ENCOUNTER 2022-01-23 09:50 | Outpatient (CLI) | payer MEDICARE, OTHER, SELFPAY | END 2022-01-23 09:51 | disposition home or self-care (01) | LOC: LBO 09:54 | PROVIDERS: PCP Nurse Practitioner ==

== ENCOUNTER → 2022-02-23 00:28 | Outpatient (CLI) | payer MEDICARE, OTHER, SELFPAY ==
--- NOTE | 2022-02-23 08:00 | DI.CTLCSR_ITS ---
Exam(s) CT CHEST LUNG CANCER SCREEN EXAM: CT CHEST LUNG CANCER SCREEN CLINICAL HISTORY: Screening for lung cancer,FORMER SMOKER, Z87.891 TECHNIQUE: Imaging Protocol: Axial computed tomography images with coronal and sagittal reformatted images were created and reviewed. Low dose screening protocol. COMPARISON: CT CT CHEST LUNG CANCER SCREEN from 08/22/2020 FINDINGS: Tracheobronchial tree: No bronchiectasis or mucus plugging.. Mediastinum and Lillian: Stable anterior mediastinal mass. Pulmonary parenchyma: Mild right basilar atelectasis. No consolidation or dominant measurable mass. Mild centrilobular emphysematous changes. Lung Nodules: None. Pleura: No effusion. No pneumothorax. Heart: The heart is not dilated. No coronary artery calcifications are seen. Aorta: Thoracic aorta non-dilated.Tortuous with mild to moderate calcification. Upper abdomen: Stable appearance markedly elevated right diaphragm Bones: Stable kyphotic deformity at the thoracolumbar junction. Soft Tissues: Unremarkable. IMPRESSION: No suspicious pulmonary nodules. Stable anterior mediastinal mass. Lung RADS Cat 1 - Negative: No nodules and definitely benign nodules Lung-RADS 1.0 CATEGORIES: Category 0 - Prior chest CT exam(s) being located for comparison. Category 1 - Annual screening in 12 months. No nodules or definitely benign nodules. Category 2 - Annual screening in 12 months. Benign appearance. Nodules with low likelihood of becomin g active cancer. Category 3 - 6-month follow-up. Probably benign. Short-term follow-up suggested. Nodules with low lik elihood of becoming active cancer. Category 4A - 3-month follow-up and CT/PET if >8 mm in size. Suspicious finding. Findings which requi re additional testing. Category 4B - Findings which require additional testing and tissue sampling. Category 4X - Category 3 or 4 nodules with additional features or imaging findings that increases the suspicion of malignancy. Modifier S- Potentially clinically significant findings (non lung cancer) RADIATION DOSE DELIVERED: 70.52mGy.cm Total DLP 1.84mGy CTDIvol DATA REPOSITORY: All CT scans at this facility are submitted to the National Radiology Data Registry (NRDR) Dose Index Registry (DIR) with the [employer] (ACR). RADIATION OPTIMIZATION: All CT scans at this facility use at least one of these dose optimization te chniques: automated exposure control; mA and/or kV adjustment per patient size (includes targeted exa ms where dose is matched to clinical indication); or iterative reconstruction.
== END ==
PROVIDERS: PCP Nurse Practitioner; Visit Provider Nurse Practitioner
DX: J44.9 Chronic obstructive pulmonary disease, unspecified (principal); J98.6 Disorders of diaphragm; Z87.891 Personal history of nicotine dependence; Z12.2 Encounter for screening for malignant neoplasm of respiratory organs
CPT/HCPCS: 71271

== ENCOUNTER 2022-07-10 02:21 | Outpatient (CLI) | payer MEDICARE, SELFPAY ==
--- NOTE | 2022-07-10 07:55 | DI.MAMMO_ITS ---
Exam(s) MAMMO SCREENING EXAM: MAMMO SCREENING CLINICAL HISTORY: screening,Z12.39. TECHNIQUE: Bilateral full field digital CC and MLO mammographic images were obtained with 3D tomosyn thesis and utilizing computer aided detection (CAD). COMPARISON: Prior mammograms were reviewed. FINDINGS: There has been no significant change in the appearance and distribution of the fibroglandular tissue. There are no CAD designations. There are no new spiculated masses nor malignant appearing microcalcification groups. Previously described small nodules in the right breast which were shown to be cysts on prior ultrasou nd examination 1 year ago remain stable. There are no new additional findings in the right breast. The lateral aspect of the left breast there is an oval noncalcified well-defined nodule measuring 7 b y 4 millimeters, approximately 6 cm in from the nipple on the MLO view, most probably benign as it is unchanged from prior mammogram of February 2019 and February 2016. There is no significant architectural distortion nor skin thickening-retraction. IMPRESSION: Stable benign-appearing findings. No radiographic evidence of malignancy. BI-RADS Category 2 - Benign Findings Breast Density - Category B - Scattered areas of fibroglandular density Breast density Category C or D implies that the patient has dense breast tissue. Dense breast tissue can make it harder to find cancer on a mammogram. Dense breast tissue is also associated with an incr eased risk of breast cancer. This information about the result of the mammogram report was provided to the patient to raise their awareness. Use this report when you speak with the patient about their risks for breast cancer, which includes their family history. At that time, you may recommend additional screening tests (Ultrasoun d or MRI) as these tests may add significant information. A negative radiographic report should not delay biopsy if a dominant or clinically suspicious mass is present. Up to ten percent of cancers are not identified on mammography. A negative report may reinforce clinical impression. Adenosis and dense breasts may obscure an underlying neoplasm. False positive reports average 6 to 10%. Patient will receive a letter notifying them of these results.
== END 2022-07-10 02:41 ==
PROVIDERS: PCP Nurse Practitioner; Visit Provider Nurse Practitioner
DX: Z12.31 Encounter for screening mammogram for malignant neoplasm of breast (principal)
CPT/HCPCS: 77063; 77067

== ENCOUNTER → 2023-04-02 00:27 | Outpatient (CLI) | payer MEDICARE, SELFPAY ==
--- NOTE | 2023-04-02 07:30 | DI.CTLCSR_ITS ---
Exam(s) CT CHEST LUNG CANCER SCREEN EXAM: CT CHEST LUNG CANCER SCREEN CLINICAL HISTORY: Screening for lung cancer,FORMER SMOKER, Z87.891 TECHNIQUE: Imaging Protocol: Axial computed tomography images with coronal and sagittal reformatted images were created and reviewed COMPARISON: CT CHEST - LUNG CANCER SCREENING from 12/06/[address] CHEST LUNG CANCER SCREEN from 02/23/2022 FINDINGS: Tracheobronchial tree: Patent where visualized. Pulmonary parenchyma: Emphysematous changes are present in the lungs. There is scarring seen in the right lung base. Atelectatic changes are seen in the lung bases. No focal consolidating infiltrates are seen. There is elevation of the right hemidiaphragm again noted. Lung Nodules: None. Mediastinum and Lillian: No dominant adenopathy or fluid collection. The esophagus is unremarkable.Stabl e anterior mediastinal mass. Lymph nodes: Unremarkable. Pleura: No effusion or pneumothorax. Heart: The heart is not dilated. Mild coronary artery calcification. No pericardial effusion. Aorta: Thoracic aorta non-dilated.Atherosclerosis. Upper abdomen: Unremarkable. Soft Tissues: Unremarkable. Bones: Within normal limits for the patient's age. IMPRESSION: No pulmonary nodules. Lung RADS Cat 1 - Negative: No nodules and definitely benign nodules Lung-RADS 1.0 CATEGORIES: Category 0 - Prior chest CT exam(s) being located for comparison. Category 1 - Annual screening in 12 months. No nodules or definitely benign nodules. Category 2 - Annual screening in 12 months. Benign appearance. Nodules with low likelihood of becomin g active cancer. Category 3 - 6-month follow-up. Probably benign. Short-term follow-up suggested. Nodules with low lik elihood of becoming active cancer. Category 4A - 3-month follow-up and CT/PET if >8 mm in size. Suspicious finding. Findings which requi re additional testing. Category 4B - Findings which require additional testing and tissue sampling. Suspicious finding. Category 4X - Category 3 or 4 nodules with additional features or imaging findings that increases the suspicion of malignancy. Modifier S- Potentially clinically significant finding. (Non lung cancer) RADIATION DOSE DELIVERED: 71.79mGy.cm Total DLP 71.79mGy.cmTotal DLP DATA REPOSITORY: All CT scans at this facility are submitted to the National Radiology Data Registry (NRDR) Dose Index Registry (DIR) with the [employer] (ACR). RADIATION OPTIMIZATION: All CT scans at this facility use at least one of these dose optimization te chniques: automated exposure control; mA and/or kV adjustment per patient size (includes targeted exa ms where dose is matched to clinical indication); or iterative reconstruction.
== END ==
PROVIDERS: PCP Nurse Practitioner; Visit Provider Nurse Practitioner
DX: Z87.891 Personal history of nicotine dependence (principal); Z12.2 Encounter for screening for malignant neoplasm of respiratory organs
CPT/HCPCS: 71271

== ENCOUNTER 2023-05-01 12:34 | Outpatient (CLI) | payer MEDICARE, SELFPAY ==
[2023-05-01 09:41] LABS: Abs Immature Grans 0.01 10^3/uL (0.0-0.06); Absolute Basophil Count 0.03 10^3/uL (0.0-0.2); Absolute Eosinophil Count 0.17 10^3/uL (0.0-0.7); Absolute Lymphocyte Count 1.41 10^3/uL (1.2-3.4); Absolute Monocyte Count 0.51 10^3/uL (0.1-0.8); Absolute Neutrophil Count 3.64 10^3/uL (1.2-6.7); Basophils % 0.5; Eosinophils % 2.9; HCT 43.1 % (36.0-46.0); Immature Grans % 0.2; Lymphocytes % 24.4; MCH 32.4 pg (27.0-33.0); MCHC 32.5 % (32.0-36.0); MCV 100 fL (80-95); MPV 9.8 fL (8.0-11.0); Monocytes % 8.8; Neutrophils % 63.2; Platelet Count 186 10^3/uL (130-400); RBC 4.32 10^6/uL (3.93-5.22); RDW 12.1 % (11.7-14.6); WBC 5.77 10^3/uL (4.4-10.8)
[2023-05-01 10:32] LABS: ALT 33 U/L (14-59); AST 19 U/L (15-37); Albumin 3.6 g/dL (3.4-5.0); Alkaline Phosphatase 65 U/L (46-116); Anion Gap 4.6 mmol/L (3-11); BUN 16 mg/dL (7-18); Bilirubin, Total 0.4 mg/dL (0.2-1.0); CO2 34.4 mmol/L (21.0-32.0); CREATININE 0.8 mg/dL (0.55-1.02); Calcium 9.2 mg/dL (8.5-10.1); Calculated LDL 123 mg/dL (<100); Chloride 104 mmol/L (98-107); Cholesterol 216 mg/dL (<200); Estimated GFR 77.27 (mL/min/1.73m2); Glucose 102 mg/dL (74-106); HDL Cholesterol 73 mg/dL (40-60); Potassium 3.9 mmol/L (3.5-5.1); Sodium 143 mmol/L (136-145); TSH (W/Ref FT4) 1.06 uIU/mL (0.36-3.74); Total Protein 7.3 g/dL (6.4-8.2); Triglyceride 100 mg/dL (<150)
== END 2023-05-01 12:35 | disposition home or self-care (01) ==
LOC: LBO 12:37
PROVIDERS: PCP Nurse Practitioner; Visit Provider Nurse Practitioner
DX: E03.9 Hypothyroidism, unspecified (principal); G47.33 Obstructive sleep apnea (adult) (pediatric); J44.9 Chronic obstructive pulmonary disease, unspecified; I50.89 Other heart failure
CPT/HCPCS: 36415; 80053; 80061; 84443; 85025

== ENCOUNTER → 2023-10-21 03:15 | Outpatient (CLI) | payer MEDICARE, SELFPAY ==
--- NOTE | 2023-10-21 12:35 | DI.MAMMO_ITS ---
Exam(s) MAMMO SCREENING EXAM: MAMMO SCREENING CLINICAL HISTORY: screening,Z12.39 TECHNIQUE: Bilateral full field digital CC and MLO mammographic images were obtained with 3D tomosyn thesis and utilizing computer aided detection (CAD). COMPARISON: Available for comparison. FINDINGS: Masses/Architectural Distortion: There are stable nodules in the breasts. No new nodules are seen. No areas of architectural distortion are present. Microcalcifications: No suspicious pleomorphic-type are seen. Skin Thickening/Nipple Retraction: None. IMPRESSION: 1. No significant interval change with no specific features of malignancy noted. 2. Unless there is more urgent need, screening mammography is recommended, as per [employer] guidelines. BI-RADS Category 2 - Benign Findings Breast Density - Category B - Scattered areas of fibroglandular density Breast density category C or D implies that the patient has dense breast tissue. Dense breast tissue is very common and is not abnormal but dense breast tissue can make it harder to find cancer on a ma mmogram. Also, dense breast tissue may increase their breast cancer risk. This information about the result of the mammogram report was provided to the patient to raise their awareness. Use this report when you speak with the patient about their risks for breast cancer, which includes their family hist ory. At that time, you may recommend for more screening tests (Ultrasound or MRI) as they might be us eful based on their risk. A negative radiographic report should not delay biopsy if a dominant or clinically suspicious mass is present. Up to ten percent of cancers are not identified on mammography. A negative report may reinforce clinical impression. Adenosis and dense breasts may obscure an underlying neoplasm. False positive reports average 6 to 10%. Patient will receive a letter notifying them of these results.
== END ==
PROVIDERS: PCP Nurse Practitioner; Visit Provider Nurse Practitioner
DX: Z12.31 Encounter for screening mammogram for malignant neoplasm of breast (principal)
CPT/HCPCS: 77063; 77067

== ENCOUNTER 2024-03-26 03:09 | Outpatient (CLI) | payer MEDICARE, SELFPAY ==
[2024-03-26 10:40] LABS: Hemoglobin A1C 5.8 % (<5.7)
[2024-03-26 11:45] LABS: ALT 35 U/L (14-59); AST 23 U/L (15-37); Albumin 3.4 g/dL (3.4-5.0); Alkaline Phosphatase 70 U/L (46-116); Anion Gap 7.9 mmol/L (3-11); BUN 17 mg/dL (7-18); Bilirubin, Total 0.46 mg/dL (0.2-1.0); CO2 33.1 mmol/L (21.0-32.0); CREATININE 0.8 mg/dL (0.55-1.02); Calcium 9.4 mg/dL (8.5-10.1); Calculated LDL 121 mg/dL (<100); Chloride 102 mmol/L (98-107); Cholesterol 212 mg/dL (<200); Estimated GFR 76.79 (mL/min/1.73m2); Glucose 106 mg/dL (74-106); HDL Cholesterol 76 mg/dL (40-60); Sodium 143 mmol/L (136-145); TSH (W/Ref FT4) 1.57 uIU/mL (0.36-3.74); Total Protein 7.2 g/dL (6.4-8.2); Triglyceride 77 mg/dL (<150)
== END 2024-03-26 03:10 | disposition home or self-care (01) ==
LOC: LBO 03:09
PROVIDERS: PCP Nurse Practitioner; Referring Provider Nurse Practitioner; Visit Provider Nurse Practitioner
DX: E03.9 Hypothyroidism, unspecified (principal); E66.9 Obesity, unspecified; R73.01 Impaired fasting glucose
CPT/HCPCS: 36415; 80053; 80061; 83036; 84443

== ENCOUNTER 2024-04-02 02:10 | Outpatient (CLI) | payer MEDICARE, SELFPAY ==
--- NOTE | 2024-04-02 08:41 | DI.CTLCSR_ITS ---
Exam(s) CT CHEST LUNG CANCER SCREEN EXAM: CT CHEST LUNG CANCER SCREEN CLINICAL HISTORY: Screening for lung cancer, former smoker, Z87.891 TECHNIQUE: Imaging Protocol: Axial computed tomography images with coronal and sagittal reformatted images were created and reviewed COMPARISON: CT CT CHEST LUNG CANCER SCREEN from 02/23/[address] CHEST LUNG CANCER SCREEN from 04/02/2023 FINDINGS: Tracheobronchial tree: Patent where visualized. No bronchiectasis. Pulmonary parenchyma: No consolidation or dominant measurable mass. Mild centrilobular emphysematous changes are present. There is scarring seen in the lung bases. Lung Nodules: None. Mediastinum and Lillian: No dominant adenopathy or fluid collection. The esophagus is unremarkable.There is a stable well-circumscribed nodule in the anterior mediastinum. Lymph nodes: No significant axillary adenopathy. Pleura: No effusion or pneumothorax. Heart: The heart is not dilated. No coronary artery calcifications are seen. No pericardial effusion . Aorta: Thoracic aorta non-dilated.Atherosclerotic calcification is present. Upper abdomen: There is again seen marked elevation of the right hemidiaphragm. Soft Tissues: Unremarkable. Bones: Within normal limits. IMPRESSION: No pulmonary nodules. Lung RADS Cat 1 - Negative: No nodules and definitely benign nodules Lung-RADS 1.0 CATEGORIES: Category 0 - Prior chest CT exam(s) being located for comparison. Category 1 - Annual screening in 12 months. No nodules or definitely benign nodules. Category 2 - Annual screening in 12 months. Benign appearance. Nodules with low likelihood of becomin g active cancer. Category 3 - 6-month follow-up. Probably benign. Short-term follow-up suggested. Nodules with low lik elihood of becoming active cancer. Category 4A - 3-month follow-up and CT/PET if >8 mm in size. Suspicious finding. Findings which requi re additional testing. Category 4B - Findings which require additional testing and tissue sampling. Suspicious finding. Category 4X - Category 3 or 4 nodules with additional features or imaging findings that increases the suspicion of malignancy. Modifier S- Potentially clinically significant finding. (Non lung cancer) RADIATION DOSE DELIVERED: 44.11mGy.cm Total DLP 44.11mGy.cmTotal DLP DATA REPOSITORY: All CT scans at this facility are submitted to the National Radiology Data Registry (NRDR) Dose Index Registry (DIR) with the [employer] (ACR). RADIATION OPTIMIZATION: All CT scans at this facility use at least one of these dose optimization te chniques: automated exposure control; mA and/or kV adjustment per patient size (includes targeted exa ms where dose is matched to clinical indication); or iterative reconstruction.
== END 2024-04-02 02:30 ==
LOC: DI 02:10
PROVIDERS: PCP Nurse Practitioner; Visit Provider Nurse Practitioner
DX: Z12.2 Encounter for screening for malignant neoplasm of respiratory organs (principal); Z87.891 Personal history of nicotine dependence
CPT/HCPCS: 71271

== ENCOUNTER → 2024-04-27 13:25 | Outpatient (BNVA) | payer MEDICARE, SELFPAY | PROVIDERS: PCP Nurse Practitioner; Referring Provider Nurse Practitioner; Visit Provider Physical Therapy Assistant | DX: Z12.11 Encounter for screening for malignant neoplasm of colon (principal); J44.9 Chronic obstructive pulmonary disease, unspecified; Z86.0100 Personal history of colon polyps, unspecified ==

== ENCOUNTER 2024-05-04 09:42 | Day surgery (SDC) | payer MEDICARE, SELFPAY ==
--- NOTE | 2024-05-03 21:02 | PDOC.DSDIS_ITS ---
Date of service: 05/04/24 Time of Service: 11:23 Discharge Plan Disposition Patient Disposition: Home Condition: Good Discharge Details Reason For Visit: screening colonoscopy Attending Provider: Diego Morris Primary Care Provider: Barbi Hinton Home Meds and New Rx's Prescriptions: Continued bupropion HCl [Wellbutrin SR] 150 mg tablet sustained-release 12 hr 150 mg PO DAILY Qty: 90 3RF levothyroxine 125 mcg tablet 125 mcg PO DAILY Qty: 90 3RF potassium chloride 10 mEq capsule, extended release 10 meq PO DAILY Qty: 90 3RF ibuprofen 200 mg capsule 200 mg PO TID-QID PRN furosemide 40 mg tablet 40 mg PO DAILY Patient Comments: dose increase [facility] [place]18 tiotropium-olodaterol 2.5-2.5 mcg/actuation mist 2 puff IH DAILY Patient Comments: noted from [facility] Cardiology report (03/31/19) loratadine 10 mg capsule 10 mg PO DAILY (DME) Oxygen Tank See Dose Instructions .ROUTE .MEDSUPPLY Qty: 1 Patient Comments: with ambulation, ordered by Cardio, [facility] [place] [place]: continue supplemental O2 w/ sleep and exertion. MD Genet 2l/min Rx Instructions: As directed omeprazole 20 mg capsule,delayed release(DR/EC) 20 mg PO DAILY Patient Comments: 03/04/19 Started by CAMILO De La Cruz 02/27/22 Increased to BID by Cardiology polyethylene glycol 3350 [Miralax] 17 gram/dose powder 17 g PO DAILY Rx Instructions: 1/2 cap daily as directed and hold for diarrhea >2-3 days and then resume Discontinued polyethylene glycol 3350 17 gram/dose powder 17 g PO ONCE Qty: 238 0RF Rx Instructions: Take per colonoscopy instructions provided by ordering providers office bisacodyl [Dulcolax (bisacodyl)] 5 mg tablet,delayed release (DR/EC) 5 mg PO ONCE Qty: 8 0RF Rx Instructions: Take per colonoscopy instructions provided by ordering providers office Discharge Instructions Instructions: Colon polyps, Diverticulosis Additional Instructions: Ilana, it was very nice meeting you today, and I hope you are comfortable during the colonoscopy. Everything went very smoothly. Your prep was excellent. I did find removed for polyps today. These will be sent off for testing. Polyps, different varieties, and the nature of the polyp influences the timing of your next colonoscopy. Those results usually take about a week or 2, but once we have those, the office will be in touch with recommendations. Incidentally, he also have some diverticulosis. These are weak spots in the wall of the colon. They typically accumulate as we get older. Maintaining a diet that is rich in fiber, stay well-hydrated, and avoiding symptoms of constipation apply the best way to take care of it. I have attached some information here about diverticulosis as well as polyps. If you have any questions at all, please do not hesitate to ask. 1. If tolerated, consume a soft, low fiber diet for 1-2 days. 2. Do not drive, drink alcohol, operate machinery, make critical decisions, or do activities that require coordination or balance for 24 hours. 3. Because air was put into your colon during the procedure, expelling air from your rectum (passing gas or farting) is normal. 4. You may not have a bowel movement for 1-3 days because of the colonoscopy prep. This is normal. 5. Go directly to the emergency room if you notice any of the following: Develop chills (warm to touch), or if you have a thermometer and your temperature is above 101 Difficulty breathing or difficultly swallowing Persistent vomiting Severe abdominal pain, other than gas cramps Severe chest pain Black, tarry stools Any bleeding ? exceeding one tablespoon 6. Call your physician if the site where your intravenous was started becomes red, swollen, painful, and warm to touch. 7. Your physician has reviewed your pre-procedure medications. Please continue to take those medications as previously ordered. You will be given specific information/education regarding any changes to your medications before leaving. Activity:: Activity as Tolerated Diet:: As Tolerated Discharge Orders Discharge Orders: Discharge Order (Routine); Ordered 05/03/24 Ordered By: Diego Morris DS: Diagnosis Discharge Diagnosis (1) Encounter for screening colonoscopy: Status: Acute Asessment and Plan: Follow-up on polypectomy results
--- NOTE | 2024-05-03 21:04 | W.COLOREPORT ---
Date of service: 05/04/24 Time of Service: : Colonoscopy Report Date of procedure: 05/04/24 Pre-op diagnosis general: screening colonoscopy Post-op diagnosis procedure note: other (Diverticulosis, colon polyps) Procedure: colonoscopy with polypectomy Surgeon: Diego Morris Anesthesia Type: General:No Airway Estimated blood loss (mL): 10 Pathology: other (0.25 cm flat polyp at 80 cm, 0.75 cm flat polyp at 75 cm, 0.25 cm slightly pedunculated polyp at 70 cm, 0.25 cm flat polyp at 20 cm) Complications: None Disposition: same day Indications: Ilana is a 73 year old woman who needs a screening colonoscopy Prep: Miralax/Dulcolax Procedure Start Time: 10:44 Procedure End Time: : Retraction Time: 19 Findings: Diverticulosis; 0.25 cm flat polyp at 80 cm, 0.75 cm flat polyp at 75 cm, 0.25 cm slightly pedunculated polyp at 70 cm, 0.25 cm flat polyp at 20 cm Procedure Description: After the induction of anesthesia, and with the patient in left lateral decubitus position, I began by performing an external anorectal exam.? Perineum and skin were normal, as was the anal verge.? There was no evidence of external hemorrhoids.? Next, I performed a digital rectal exam.? I did not appreciate any abnormal findings.? Next, I advanced a colonoscope into the rectal vault.? I performed retroflexion.? This appeared normal.? Using insufflation, I then advanced the colonoscope beyond the rectal folds and into the sigmoid colon before advancing towards the cecum.? There is sigmoid diverticulosis.? The scope was noted to be in the cecum by identification of the ileocecal valve and appendiceal orifice.? I then began withdrawing the colonoscope using repeated irrigation as necessary for full evaluation of the colonic mucosa. Around 80 cm from the anal verge was 0.25 cm mostly flat polyp. This was removed with cold forceps with minimal bleeding. A few centimeters away, around 75 cm from the anus was a larger polyp. This was about 0.75 cm and mostly flat. This was removed with energized snare polypectomy. 0.25 cm slightly pedunculated polyp was detected at 70 cm, this was removed with snare polypectomy, and finally, polyp was removed from 20 cm using cold forceps. This polyp appeared more flat, polypectomy site looked healthy after retrieval of the specimen. Once the scope was withdrawn to the level of the rectum, great care was taken to examine portions of the rectal folds.? Finally, the scope was withdrawn and the patient was brought to the same-day surgery recovery unit as the anesthetic wore off. ?The findings and instructions were shared with the patient prior to discharge. Gunter Bowel Prep Gunter Bowel Prep Right Colon: 3 Left Colon: 3 Transverse Colon: 3 Total Score: 9
[2024-05-04 10:00] VITALS: BP 143/70; PULSE 81; RESP 20; TEMP 37; O2SAT 91
--- NOTE | 2024-05-04 10:18 | ANES.PREOP_ITS ---
General Info Date of Service Date Performed: 05/04/24 Height: 5 ft 0.25 in Weight: 86 kg Body Mass Index (BMI): 36.7 Surgical Procedure: Operation Date: 05/04/24 11:20 Proposed Procedure Side Surgeon mary Morris MD Meds Allergies and Home Medications Allergies Allergy/AdvReac Type Severity Reaction Status Date / Time No Known Allergies Allergy Verified 05/04/24 10:06 Home Medication ?Medication ?Instructions ?Recorded ibuprofen 200 mg capsule 200 mg PO TID-QID PRN 08/25/18 furosemide 40 mg tablet 40 mg PO DAILY 09/19/18 tiotropium 2.5 mcg-olodaterol 2.5 2 puff inhalation DAILY 04/06/19 mcg/actuation mist for inhalation loratadine 10 mg capsule 10 mg PO DAILY 08/12/19 Oxygen #1 ea 02/02/20 omeprazole 20 mg capsule,delayed 20 mg PO DAILY 03/08/22 release polyethylene glycol 3350 17 17 g PO DAILY 05/01/23 gram/dose oral powder (Miralax) bupropion HCl 150 mg tablet,12 hr 150 mg PO DAILY #90 tabs 03/16/24 sustained-release (Wellbutrin SR) levothyroxine 125 mcg tablet 125 mcg PO DAILY #90 tab-caps 03/16/24 potassium chloride 10 mEq 10 meq PO DAILY #90 caps 03/16/24 capsule,extended release Current Visit Medications: Current Medications Generic Name Dose Route Start Last Admin Trade Name Freq PRN Reason Stop Dose Admin Ringer's Solution 500 mls @ 80 mls/hr 05/04/24 06:00 IV 05/04/24 23:59 [facility] IV Miscellaneous Supplies 1 each 05/04/24 06:00 Iv Access IV 05/04/24 23:59 DIRECTED MARLENI Ondansetron HCl 4 mg 05/03/24 21:05 Ondansetron 4 Mg/2 Ml Vial IVP 06/02/24 21:04 Q4H PRN PRN Nausea / Vomiting Sodium Chloride 0 ml 05/04/24 06:00 Normal Saline Flush 10 Ml Syr IV 05/04/24 23:59 PRN PRN Sodium Chloride 0 ml 05/04/24 06:00 Normal Saline 10 Ml Vial IJ 05/04/24 23:59 DIRECTED PRN Sterile Water 0 ml 05/04/24 06:00 Water,Injection,Sterile 10 Ml Vial IJ 05/04/24 23:59 DIRECTED PRN [facility] Active Problems Active Problems: Problem Status Onset Code Encounter for screening colonoscopy Acute Z12.11 Chronic idiopathic constipation Acute ~04/2023 K59.04 Positive colorectal cancer screening using Cologuard test Acute ~04/21/23 R19.5 Hiatal hernia Chronic K44.9 COPD, severe Acute J44.9 Obstructive sleep apnea syndrome Acute G47.33 Obesity Chronic E66.9 Chronic diastolic heart failure Acute I50.32 Other heart failure Acute I50.89 Abnormal EKG Acute R94.31 Elevated hemidiaphragm Acute 12/06/15 J98.6 Medical History Medical History Irritable bowel syndrome with constipation Pulmonary hypertension Right Heart Catheterization performed 10/03/18 @ [facility] [place] consistent with moderate pulmonary HTN, Likely precapillary from COPD. 03/31/19 [facility] [place] Cardiology Seborrheic keratoses (01/28/15) Lesion of mediastinum (12/06/15) 2.2 cm nodule ant mediastinum on screening CT; 2.[address] 12/16/15, refer for bx: benign fibroadipose tissue; ? repeat imaging Hypothyroidism, unspecified (10/31/11) Family hx-breast malignancy (07/02/13) M, S, Pat Aunt Arthritis of knee (07/02/13) RIGHT; 2011 x-ray mod to severe DJD PT 2013 Anxiety (06/20/12) Long-term Wellbutrin RX Medical History Comments:: on O2 with CPAP, does need O2 when laying flat; pt reports baseline O2 90-91% Surgical History Surgical History History of removal of both ovaries Mediastinal nodule biopsy (12/29/15) 2.2 cm nodule anterior mediastinum bx Interventional Radiology [facility] [place] Tobacco Smoking/Tobacco Use Status: Former Tobacco Use Passive smoking exposure: No Alcohol Alcohol Intake: current Alcohol intake frequency: 0-2 drinks per day Alcohol type: wine Substance Use Substance use: Never Substance use type: does not use Details: 1 glass wine per night Vital Signs and Lab Results Vital Signs Most Recent Vital Signs in EMR: Most Recent Vital Signs Temp Pulse Resp BP Pulse Ox 37 C 81 20 143/70 H 91 L 05/04/24 10:00 05/04/24 10:00 05/04/24 10:00 05/04/24 10:00 05/04/24 10:00 Lab Results Blood Type / Crossmatch: No Data to Display Complete Blood Count: No Data to Display Complete Metabolic Panel: No Data to Display Liver Function Panel: No Data to Display Coagulation Panel: No Data to Display Cardiac Panel: No Data to Display Arterial Blood Gas: No Data to Display Venous Blood Gas: No Data to Display Pancreas Panel: No Data to Display Thyroid Panel: No Data to Display Infectious Disease: No Data to Display Blood Cultures: No Data to Display Toxicology Panel: No Data to Display Imaging and Studies Imaging and Studies Study information below may be from another EMR and interpreted by another provider. Please see original notes in EMR for more complete details. Stress Test Summary: 12/19/16 Stress results: Maximal heart rate during stress was 110bpm (72% of maximal predicted heart rate). The maximal predicted heart rate was 152bpm. The target heart rate was achieved. The heart rate response to stress is blunted. There is a normal resting blood pressure with an appropriate response to stress. The rate-pressure product for the peak heart rate and blood pressure was 83369nx Hg/min. The patient experienced no chest pain during stress. The patient experienced dyspnea in response to stress. Exercise capacity is markedly diminished for age. Peak stress oxygen saturation: 93% . Stress ECG: EXCERCISE TESTING ENDED AT 1 MIN, 43 SECS DUE TO FATIGUE AND SHORTNESS OF BREATH. MAX HR WAS 110, 72% OF TARGET. HYPERTENSIVE BLOOD PRESSURE RESPONSE. METS: 3.96 ECTOPY: OCCASIONAL APC'S NOTED AT 2 MINS OF RECOVERY. ANGINA: NO CHEST PAIN OR PRESSURE REPORTED, JUST DYSPNEA. ISCHEMIA: NO ISCHEMIC CHANGES NOTED. FUNCTIONAL CAPACITY: MODERATELY- MARKEDLY DIMINISHED CAPACITY. The stress ECG is indeterminate due to Inadequate heart rate. Echocardiogram Summary: 09/04/18 Summary: 1. Left ventricle: The cavity size was normal. Wall thickness was increased in a pattern of severe LVH. Systolic function was normal. The estimated ejection fraction was 60-65%. Findings consistent with diastolic dysfunction. There was no evidence of elevated ventricular filling pressure by Doppler parameters. 2. Ventricular septum: The contour showed diastolic flattening and systolic flattening. These changes are consistent with RV volume and RV pressure overload. 3. Mitral valve: There was mild regurgitation. 4. Left atrium: The atrium was mildly dilated. 5. Right ventricle: The cavity size was moderately to severely dilated. Systolic function was moderately reduced. 6. Atrial septum: No defect or patent foramen ovale was identified. 7. Tricuspid valve: There was mild-moderate regurgitation. 8. Pulmonary arteries: Pulmonary systolic pressure was in the range of 60mm Hg to 70mm Hg. 9. Inferior vena cava: The vessel was patent and normal in size. The respirophasic diameter changes were in the normal range (greater than or equal to 50%), consistent with normal central venous pressure. Anesthesia Assessment and Plan Anesthesia History Personal History: No History of Anesthesia Complications Family History: No Family History of Anesthesia Complications Exercise Tolerance Exercise Tolerance: Metabolic Equivalents<4 Pertinent Negatives Pertinent Negatives: No Symptoms of GERD, No Major Cardiovascular Symptoms or Complaints and No Major Pulmonary Symptoms or Complaints Cardiac & Pulmonary Exam Cardiac Exam: Normal S1/S2 Heart Sounds Pulmonary Exam: Clear Bilateral Breath Sounds Implantable Cardiac Device Does patient have a Pacemaker or an ICD?: No Airway Exam Known Difficult Airway: No Mallampati Class: 2 Mouth Opening: Normal (> 3cm) Thyromental Distance: Greater than 3 cm Neck Range of Motion: Full ROM Neck Circumference: Normal Teeth Condition: Normal Dentition ASA Classification ASA Score: ASA 3 Emergency Case?: No NPO Status NPO Status: NPO Clears >2 hours, Solids >8 hours Anesthesia Plan Resuscitation Status: Full Code Anesthesia Technique: General Anesthesia Airway Planned: Natural Airway Monitors Used: Standard Monitors Preoperative Comments:: Discussed using CPAP for any nap/ sleep for at least next 24 hrs.
[2024-05-04 10:23] VITALS: BMI 36.7
[2024-05-04] MEDS: Lactated Ringers 500 ML 80 ML IV (10:33)
--- NOTE | 2024-05-04 11:00 | BOWEL_PTH ---
PATIENT: Ilana Coronel LOC: [facility] U#:[id number] AGE/SX: 73/F ROOM: RE05/04/[address]: Diego Morris MD : [id number] BED: DIS: 05/04/2024 SPEC #: [id number] RECD: 05/04/24 13:23 STATUS: HAKEEM RE #: [id number] PATEL: 05/04/24 11:[address]: Diego Morris DEPT: Surgical Specimen RECD BY: Joaquina Bui ENTERED: 05/04/24 13:24 SP TYPE: Bowel OTHR DR: Barbi Hinton APRN Tissues: 1 - BIOPSY BOWEL 2 - BIOPSY BOWEL 3 - BIOPSY BOWEL 4 - BIOPSY BOWEL Procedures: GROSS AND MICRO LEVEL 4 Comments: [id number]
[2024-05-04 11:23] VITALS: BP 118/68; PULSE 75; RESP 16; TEMP 36.4; O2SAT 94
--- NOTE | 2024-05-04 11:39 | W.ANESPOSTOP ---
Postoperative Evaluation Date, Time and Location Date Performed: 05/04/24 Time Performed: 11:28 Patient Location: Day Surgery Unit Vital Signs Most Recent Imported Vital Signs: Most Recent Vital Signs Temp Pulse Resp BP Pulse Ox 36.4 C L 75 16 118/68 94 05/04/24 11:23 05/04/24 11:23 05/04/24 11:23 05/04/24 11:23 05/04/24 11:23 Pain Score Most Recent Pain Score: Most Recent Pain Score Pain Level 0 05/04/24 11:23 Assessment Mental Status: Awake (Alert & Oriented to Patient Baseline) Airway and Respiratory Function: Patent airway with normal (patient baseline) respiratory exam Cardiovascular Function: Hemodynamically Stable Hydration Status: Adequately Hydrated Nausea & Vomiting: No Nausea or Vomiting Pain: Pt. Denies Any Pain Peripheral Nerve Block: Patient did not receive a nerve block Teaching Patient Teaching: Discussed the importance of using CPAP/BiPAP during any sleep period
[2024-05-04 11:48] VITALS: BP 131/70; PULSE 74; RESP 16; TEMP 36.4; O2SAT 95
== END 2024-05-04 12:10 | disposition home or self-care (01) ==
LOC: SUR 09:43
PROVIDERS: PCP Nurse Practitioner; Visit Provider Surgery
PROC: 0DJD8ZZ Inspection of Lower Intestinal Tract, Via Natural or Artificial Opening Endoscopic (ICD-10-PCS; CPT 45378; principal; 2024-05-04 11:15)
DX: Z12.11 Encounter for screening for malignant neoplasm of colon (principal); D12.5 Benign neoplasm of sigmoid colon; K57.30 Diverticulosis of large intestine without perforation or abscess without bleeding; J44.9 Chronic obstructive pulmonary disease, unspecified; D12.4 Benign neoplasm of descending colon
CPT/HCPCS: 45385; 45380; 88305; J2371; J2405; J2704

== ENCOUNTER 2024-05-18 15:36 | Outpatient (CLI) | payer MEDICARE, SELFPAY ==
--- NOTE | 2024-05-18 15:02 | DI.RAD_ITS ---
Exam(s) XR KNEE RT 3V AP,LAT,JENNIFER EXAM: XR KNEE RT 3V AP,LAT,JENNIFER CLINICAL HISTORY: right knee pain. TECHNIQUE: 2D digital imaging was performed. Three views. COMPARISON: CR RIGHT KNEE 3 VIEWS from 07/04/2012 FINDINGS: BONES: No acute fracture is present. No bony destructive lesion is seen. JOINTS: The severe narrowing lateral femoral tibial joint and compensatory widening of the medial fem oral tibial joint. Lateral femoral tibial joint space spurring. Mild spurring at the patellofemoral joint. A small joint effusion is seen. Mild anterior subluxation of the tibia with respect to the distal femur consistent with ACL tear. SOFT TISSUE: Normal. 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 DATA REPOSITORY: RADIATION DOSE DELIVERED:
== END 2024-05-18 15:37 | disposition home or self-care (01) ==
LOC: DIORS 15:36
PROVIDERS: PCP Nurse Practitioner; Referring Provider Nurse Practitioner; Visit Provider Student in an Organized Health Care Education/Training Program
DX: M17.11 Unilateral primary osteoarthritis, right knee
CPT/HCPCS: 20610; 73562; 99213; J1010

== ENCOUNTER 2025-04-20 03:17 | Outpatient (CLI) | payer MEDICARE, SELFPAY ==
[2025-04-20 09:41] LABS: Hemoglobin A1C 5.7 % (<5.7)
[2025-04-20 09:57] LABS: Calculated LDL 114 mg/dL (<100); Cholesterol 212 mg/dL (<200); HDL Cholesterol 75 mg/dL (>or=50); TSH (W/Ref FT4) 0.97 uIU/mL (0.36-3.74); Triglyceride 117 mg/dL (<150)
== END 2025-04-20 03:18 | disposition home or self-care (01) ==
LOC: LBO 03:17
DX: E03.9 Hypothyroidism, unspecified (principal); R73.03 Prediabetes; E78.5 Hyperlipidemia, unspecified
CPT/HCPCS: 36415; 80061; 83036; 84443

== ENCOUNTER → 2025-05-27 06:14 | Outpatient (CLI) | payer MEDICARE, SELFPAY ==
--- NOTE | 2025-05-27 07:13 | DI.MAMMO_ITS ---
Exam(s) MAMMO SCREENING EXAM: MAMMO SCREENING CLINICAL HISTORY: screening,z12.39,family h/o two 1st degree relatives with breast ca TECHNIQUE: Mammograms were interpreted according to the usual protocol including computer analysis with CAD system, tomosynthesis and C-view imaging. COMPARISON: 2015 through 2023 FINDINGS: The breasts are composed of scattered fibroglandular densities, Breast Density category B. No suspicious masses or suspicious microcalcifications are seen. Stable circumscribed nodule in the central left breast. No skin thickening or abnormal axillary lymph nodes are seen. There has been no significant change from prior exams. IMPRESSION: BI-RADS Category 2 - Benign Findings Yearly screening mammography is recommended. Breast Density - Category B - There are scattered areas of fibroglandular density. Breast density Category C or D implies that the patient has dense breast tissue. Dense breast tissue can make it harder to find cancer on a mammogram. Dense breast tissue is also associated with an increased risk of breast cancer. This information about the result of the mammogram report was provided to the patient to raise their awareness. Use this report when you speak with the patient about their risks for breast cancer, which includes their family history. At that time, you may recommend additional screening tests (Ultrasound or MRI) as these tests may add significant information. A negative radiographic report should not delay biopsy if a dominant or clinically suspicious mass is present. Up to ten percent of cancers are not identified on mammography. A negative report may reinforce clinical impression. Adenosis and dense breasts may obscure an underlying neoplasm. False positive reports average 6 to 10%. Patient will receive a letter notifying them of these results.
== END ==
DX: Z12.31 Encounter for screening mammogram for malignant neoplasm of breast (principal); R92.323 Mammographic fibroglandular density, bilateral breasts
CPT/HCPCS: 77063; 77067